=== PATIENT | male | born 1985 | race Caucasian/White ===

== ENCOUNTER 2018-05-24 11:18 | Emergency (ER) | payer SELFPAY ==
[~2018-05-24] VITALS: Ht 190.5 cm; Wt 108.2 kg
[2018-05-24 14:51] LABS: HEMATOCRIT 47.5 % (42.0-52.0); HEMOGLOBIN 17.1 g/dl (13.5-17.5); MEAN CORPUSCULAR HEMOGLOBIN 28.5 pg (27.0-33.0); MEAN CORPUSCULAR VOLUME 79.3 fl (80.0-96.0); PLATELET COUNT, AUTOMATED 541 10^3/uL (150-450); RED BLOOD COUNT 5.99 10^6/uL (4.30-6.10); WHITE BLOOD COUNT 15.4 10^3/uL (4.0-10.0)
[2018-05-24 15:15] LABS: AMPHETAMINES LEVEL URINE NEGATIVE (NEGATIVE); BARBITURATES URINE NEGATIVE (NEGATIVE); BENZODIAZEPINES URINE NEGATIVE (NEGATIVE); CANNABINOIDS URINE NEGATIVE (NEGATIVE); COCAINE METABOLITE URINE NEGATIVE (NEGATIVE); METHADONE URINE NEGATIVE (NEGATIVE); OPIATES URINE NEGATIVE (NEGATIVE); PHENCYCLIDINE URINE NEGATIVE (NEGATIVE)
[2018-05-24 15:23] LABS: ACETAMINOPHEN LEVEL < 2.0 UG/ML (10.0-30.0); ALBUMIN 4.2 GM/DL (3.2-5.2); ALT/SGPT 26 U/L (12-78); BILIRUBIN,DIRECT 0.2 MG/DL (0.0-0.2); BILIRUBIN,TOTAL 0.8 MG/DL (0.2-1.0); BLOOD UREA NITROGEN 9 MG/DL (7-18); CALCIUM LEVEL 8.9 MG/DL (8.5-10.1); CARBON DIOXIDE LEVEL 29 MEQ/L (21-32); CHLORIDE LEVEL 107 MEQ/L (98-107); CREATININE FOR GFR 0.93 MG/DL (0.70-1.30); ETHYL ALCOHOL (ETHANOL) < 0.003 % (0.000-0.010); GLOMERULAR FILTRATION RATE > 60.0 (>60); GLUCOSE, FASTING 110 MG/DL (70-100); POTASSIUM SERUM 3.9 MEQ/L (3.5-5.1); SALICYLATE LEVEL 1.8 MG/DL (5.0-30.0); SODIUM LEVEL 141 MEQ/L (136-145); THYROID STIMULATING HORMONE 0.247 uIU/ML (0.358-3.740); TOTAL PROTEIN 6.9 GM/DL (6.4-8.2)
[2018-05-24 17:00] VITALS: BP 139/94
== END 2018-05-24 17:06 | disposition home or self-care (01) ==
LOC: M ED 11:18
DX: F42.2 Mixed obsessional thoughts and acts (principal)
CPT/HCPCS: 36415; 80048; 80076; 80307; 84443; 85027; 99284; G0480

== ENCOUNTER 2021-09-01 14:14 | Emergency (ER) | payer OTHER, SELFPAY ==
[~2021-09-01] VITALS: Ht 190.5 cm; Wt 114.3 kg
[2021-09-01] MEDS ORDERED: EUTH200T (14:23)
[2021-09-01] MEDS ORDERED: diazePAM 5MG TABLET PO ONE (15:20)
[2021-09-01] MEDS ORDERED: ACETAMINOPHEN 500 MG TAB PO ONE (15:20)
[2021-09-01] MEDS ORDERED: METH-1165 PO (15:55)
[2021-09-01 16:05] VITALS: BP 144/107
== END 2021-09-01 16:31 | disposition home or self-care (01) ==
LOC: M ED 14:14
DX: M25.552 Pain in left hip (principal); E03.9 Hypothyroidism, unspecified; D58.0 Hereditary spherocytosis; Z90.89 Acquired absence of other organs; Z85.850 Personal history of malignant neoplasm of thyroid; F17.200 Nicotine dependence, unspecified, uncomplicated; Z79.890 Hormone replacement therapy; Z79.899 Other long term (current) drug therapy